=== PATIENT | female | born 1995 | race African-American/Black ===

== ENCOUNTER 2016-11-04 12:31 | Emergency (ER) | payer BC, MEDICAID ==
[~2016-11-04] VITALS: Ht 167.6 cm; Wt 72.0 kg
[2016-11-04] MEDS ORDERED: SODIUM CHLORIDE 0.9% 1,000 ML IV ONE (14:03)
[2016-11-04] MEDS ORDERED: ONDANSETRON HCL 4MG/2ML VIAL IV STA (14:03)
[2016-11-04] MEDS ORDERED: DIPHENHYDRAMINE 50MG/ML VIAL IV ONE (14:15)
[2016-11-04 15:38] LABS: BASOPHILS % 0.1 % (0.0-2.0); EOSINOPHILS % 0.1 % (0.0-5.0); HEMATOCRIT. 35.9 % (36.0-48.0); HEMOGLOBIN. 12.5 g/dL (12.0-16.0); LYMPHOCYTES % 9.9 % (20.0-50.0); MEAN CORPUSCULAR HEMOGLOBIN 31.6 pg (28.0-32.0); MEAN CORPUSCULAR HGB CONC 34.8 g/dL (31.0-37.0); MEAN CORPUSCULAR VOLUME 90.8 fL (81.0-99.0); MEAN PLATELET VOLUME 8.4 fl (7.4-10.4); MONOCYTES % 4.6 % (2.0-8.0); NEUTROPHILS % 85.3 % (40.0-76.0); PLATELET 247 x1000/uL (130-400); RED BLOOD CELL COUNT 3.96 mill/uL (4.2-5.4); RED CELL DISTRIBUTION WIDTH 12.7 % (11.6-14.6); WHITE BLOOD COUNT 10.3 x1000/uL (4.5-11.0)
[2016-11-04 15:41] LABS: CHLORIDE 106 mEq/L (98-107); INDEX HEMOLYSI 1 (1-3); INDEX ICTERIC 1 (1-4); INDEX LIPEMIC 1 (1-3)
[2016-11-04 15:43] LABS: CALCIUM 8.6 mg/dL (8.5-10.1)
[2016-11-04 15:47] LABS: ANION GAP 14; CARBON DIOXIDE 24 mEq/L (21-32); eGFR > 60 mL/min (>60)
[2016-11-04 15:51] LABS: UREA NITROGEN BLOOD 4 mg/dL (7-21)
[2016-11-04 17:50] VITALS: BP 125/88
== END 2016-11-04 19:31 | disposition home or self-care (01) ==
LOC: ER 12:44
DX: O26.891 Other specified pregnancy related conditions, first trimester (principal); H53.8 Other visual disturbances; Z3A.12 12 weeks gestation of pregnancy; G43.909 Migraine, unspecified, not intractable, without status migrainosus
CPT/HCPCS: 36415; 80048; 85025; 96361; 96374; 96375; 99285; J1200; J2405; Z7610; J7030